=== PATIENT | male | born 1970 | race African-American/Black ===

== ENCOUNTER → 2020-06-13 | Day surgery (SDC) | payer OTHER ==
[~2020-06-13] VITALS: Ht 177.8 cm; Wt 95.0 kg
[~2020-06-13] MED LIST: ACETAMINOPHEN 325 MG TABLET PO PRN; ALBUTEROL SULFATE 2.5 MG/3 ML NPPB PRN; BUPIVACAINE/PF-EPI 0.5% 1:200K ONE; CEFOTETAN PMX 1GM/50ML 50 ML IV ONE; CEFOTETAN PMX 1GM/50ML 50 ML ONE; CHLORHEXIDINE 15 ML UDC ONE; DEXAMETHASONE 4 MG/ML, 1ML ONE; FENTANYL PF 100 MCG/2ML IV PRN; FENTANYL PF 100 MCG/2ML ONE; GLYCOPYRROLATE 0.2MG/1ML, 5ML ONE; HYDR-3237 PO; HYDROmorphone 1 MG/ML, 1ML INJ IVPush PRN; KETOROLAC 30 MG/1 ML IVPush ONE; KETOROLAC 30 MG/1 ML ONE; LABETALOL 5MG/ML, 20ML IV PRN; LORazepam 2 MG/ML, 1ML IVPush PRN; MEPERIDINE/PF 25MG/0.5ML IVPush PRN; MEPERIDINE/PF 25MG/ML,1ML ONE; MIDAZOLAM 1 MG/ML, 2ML ONE; MORPHINE SULFATE 4 MG/ML, 1ML IVPush PRN; MORPHINE SULFATE 4 MG/ML, 1ML ONE; NEOSTIGMINE 1 MG/ML, 10ML ONE; OMNIPAQUE 350 MG/ML, 100ML BOTTLE ONE; ONDANSETRON 2MG/ML, 2ML IVPush ONE; ONDANSETRON 2MG/ML, 2ML IVPush PRN; ONDANSETRON 2MG/ML, 2ML ONE; OXYC-302 PO; OXYcodone 5 MG/5 ML ORAL.SOL UDC ONE; OXYcodone 5 MG/5 ML ORAL.SOL UDC PO PRN; PROMETHAZINE 25 MG/ML, 1ML IVPush PRN; PROPOFOL 10 MG/ML, 20ML ONE; ROCURONIUM 10MG/ML,5ML ONE; SODIUM CHLORIDE 0.9% 1,000 ML IV ONE; SODIUM CHLORIDE FLUSH 10ML SYR IVF ONE; SUCCINYLCHOLINE 20 MG/ML, 10ML ONE; hydrALAzine 20 MG/ML, 1ML IV PRN
--- NOTE | 2020-06-13 16:30 | NUR ---
PT TO ROOM FROM CLAUDETTE NAVA
[2020-06-13 17:47] LABS: BASOPHILS # (AUTO) 0.01 x10^3/uL (0-0.1); BASOPHILS % (AUTO) 0 % (0-1); EOSINOPHILS # (AUTO) 0.03 x10^3/uL (0-0.4); EOSINOPHILS % (AUTO) 0 % (1-7); LYMPHOCYTES # (AUTO) 1.22 x10^3/uL (1-3.4); LYMPHOCYTES % (AUTO) 9 % (22-44); MD NO; MEAN CORPUSCULAR HEMOGLOBIN 28.2 pg (27.5-34.5); MEAN CORPUSCULAR HGB CONC 32.4 g/dL (33.2-36.2); MEAN CORPUSCULAR VOLUME 87.1 fL (81-97); MONOCYTES # (AUTO) 0.13 x10^3/uL (0.2-0.8); MONOCYTES % (AUTO) 1 % (2-9); NEUTROPHILS # (AUTO) 12.86 x10^3/uL (1.8-6.8); NEUTROPHILS % (AUTO) 90 % (42-75); PLATELET COUNT 183 x10^3/uL (130-400); RED BLOOD COUNT 5.25 x10^6/uL (4.38-5.82)
--- NOTE | 2020-06-13 17:49 | NUR ---
BREAK RN: PT MEDICATED ORDERED FOR PAIN NAUSEA. PT ANXIOUS APPEARING AND MOANING IN ROOM. PT REPORTS PAIN IS 10/10. PT AO X 4. SKIN WARM AND DRY. PT AWARE WE ARE WAITING FOR LAB/IMAGING RESULTS. PT ON CONT BP AND SPO2 MONITORS. JUANY WATKINS AND VIJAY AMAYA HAVE BEEN TO BEDSIDE FOR EVAL.
[2020-06-13] MEDS: MORPHINE SULFATE 4 MG/ML, 1ML IVPush PRN ×2 (17:53→19:01)
[2020-06-13 17:56] LABS: ALBUMIN 4.1 g/dL (3.4-5.0); ANION GAP 9 mmol/L (5-15); CALCIUM 10.2 mg/dL (8.5-10.1); CHLORIDE 107 mmol/L (98-107)
[2020-06-13 18:00] LABS: ALANINE AMINOTRANSFERASE 21 U/L (12-78); ALKALINE PHOSPHATASE 72 U/L (45-117); BILIRUBIN,TOTAL 0.6 mg/dL (0.2-1.0); CREATININE 1.17 mg/dL (0.7-1.3); TOTAL PROTEIN 7.8 g/dL (6.4-8.2)
--- NOTE | 2020-06-13 19:03 | NUR ---
PT REMEDICATED FOR WORSENING/RETURNING RLQ PAIN RATED 10/10. PT UNDRESSED, GOWN ONLY, CLOTHING TO BELONGING BAG. VSS/UPDATED IN COMPUTER.
--- NOTE | 2020-06-13 19:40 | NUR ---
Note undone in EDM - 06/13/20 at 1943 by [email or web address] REPORT TO KRISTY DAVEY. 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 PT LAST ATE SANDWICH AT 1100, 100CC WATER AT 1300. PT REPORTS PAIN STILL 08/16, PT REMEDICATED PER EMAR. CEFOTETAN INFUSING.
[2020-06-13 22:35] VITALS: BP 147/96
== END | disposition home or self-care (01) ==
LOC: EDSTATUS 12:39 → ED 17:01 → UNDOADMIN 19:43 → EDIP 19:43 → ED 20:30 → EDIP 22:00 → 4NE 22:00 → UNDODISIN 23:04
PROVIDERS: ATTEND Student in an Organized Health Care Education/Training Program
DX: K35.30 Acute appendicitis with localized peritonitis, without perforation or gangrene (principal); Z11.59 Encounter for screening for other viral diseases; K40.90 Unilateral inguinal hernia, without obstruction or gangrene, not specified as recurrent; Z79.891 Long term (current) use of opiate analgesic; Z79.899 Other long term (current) drug therapy
CPT/HCPCS: 36415; 44970; 74177; 80053; 85025; 87635; 88304; 96374; 96375; 96376; 99285; J0330; J1100; J1885; J2175; J2250; J2270; J2405; J2704; J2710; J3010; J3490; Q9967; G0378